=== PATIENT | male | born 1965 | race African-American/Black ===

== ENCOUNTER 2022-04-20 10:05 | Outpatient (CLI) | payer MEDICAID, SELFPAY | END 2022-04-20 10:06 | disposition home or self-care (01) | PROVIDERS: Visit Provider Family Medicine | DX: M51.36 Other intervertebral disc degeneration, lumbar region (principal); M54.16 Radiculopathy, lumbar region | CPT/HCPCS: 62323; J0702; Q9966 ==

== ENCOUNTER 2022-06-18 10:21 | Outpatient (CLI) | payer MEDICAID, SELFPAY | END 2022-06-18 10:22 | disposition home or self-care (01) | PROVIDERS: PCP Family Medicine; Visit Provider Family Medicine | DX: M47.816 Spondylosis without myelopathy or radiculopathy, lumbar region (principal) | CPT/HCPCS: 64493; 64494; J0702; Q9966 ==

== ENCOUNTER 2023-09-16 07:17 | Outpatient (CLI) | payer MEDICARE, MEDICAID, SELFPAY | END 2023-09-16 07:18 | disposition home or self-care (01) | PROVIDERS: PCP Family Medicine; Visit Provider Family Medicine | DX: M54.16 Radiculopathy, lumbar region (principal); M51.36 Other intervertebral disc degeneration, lumbar region | CPT/HCPCS: 64483; J1100; Q9966 ==

== ENCOUNTER 2024-05-15 10:41 | Outpatient (CLI) | payer MEDICARE, SELFPAY | END 2024-05-15 10:42 | disposition home or self-care (01) | LOC: INJ CL 10:43 | PROVIDERS: PCP Family Medicine; Visit Provider Family Medicine | DX: M54.16 Radiculopathy, lumbar region (principal); M51.369 Other intervertebral disc degeneration, lumbar region without mention of lumbar back pain or lower extremity pain | CPT/HCPCS: 64483; J1100; Q9966 ==